=== PATIENT | female | born 1980 | race Caucasian/White ===

== ENCOUNTER 2021-01-03 11:48 | Inpatient (IN) | payer BC ==
[2021-01-03 12:59] VITALS: BMI 22.3
[2021-01-03] MEDS ORDERED: ACETAMINOPHEN 325 MG TABLET (FP) PO PRN ×2 (13:22)
[2021-01-03] MEDS ORDERED: MAG HYDROX/AL HYDROX/SIMETH 30 ML UNIT-DOSE CUP PO PRN (13:22)
[2021-01-03] MEDS ORDERED: MAGNESIUM CITRATE 300 ML BOTTLE PO PRN (13:22)
[2021-01-03] MEDS ORDERED: METHOCARBAMOL 500 MG TABLET PO PRN (13:22)
[2021-01-03] MEDS ORDERED: BISMUTH SUBSALICYLATE 524 MG/30 ML PO PRN (13:22)
[2021-01-03] MEDS ORDERED: MAGNESIUM HYDROX 2400MG/30ML ORAL SUSPENSION 30 ML CUP PO PRN (13:22)
[2021-01-03] MEDS ORDERED: IBUPROFEN 400 MG TABLET (FP) PO PRN (13:22)
[2021-01-03] MEDS ORDERED: MENTHOL/PHENOL 1 EACH UD MM PRN (13:22)
[2021-01-03] MEDS ORDERED: LORazepam 2 MG TABLET PO ONE (13:30)
[2021-01-03 15:09] LABS: HEMATOCRIT 39.4 % (32.4-45.2); HEMOGLOBIN 13.7 GM/dL (10.7-15.3); MCH 31.5 pg (25.7-33.7); MCHC 34.9 g/dl (32.0-36.0); MEAN CELL VOLUME 90.4 fl (80-96); MEAN PLT VOLUME 6.3 fl (7.5-11.1); PLATELET COUNT 146 10^3/uL (134-434); RBC 4.35 M/mm3 (3.60-5.2); RDW 16.4 % (11.6-15.6)
[2021-01-03] MEDS: hydrOXYzine PAMOATE 25 MG CAPSULE (FP) PO SCH ×3 (15:23→22:56)
[2021-01-03] MEDS: NICOTINE 21 MG/24 HOURS TOPICAL PATCH TD SCH (15:23)
[2021-01-03] MEDS: PRENATAL VITAMINS W/ FOLIC ACID TABLET (FP) PO SCH (15:23)
[2021-01-03 15:45] LABS: ALBUMIN 4.4 g/dl (3.4-5.0); BLOOD UREA NITROGEN 8.9 mg/dL (7-18); CALCIUM 9.2 mg/dL (8.5-10.1)
[2021-01-03 15:48] LABS: CREATININE 0.7 mg/dL (0.55-1.3)
[2021-01-03 15:50] LABS: BILIRUBIN,TOTAL 0.4 mg/dL (0.2-1); TOT PROT 7.2 g/dl (6.4-8.2)
[2021-01-03 16:15] LABS: HIV INTERPRETATION NEGATIVE (NEGATIVE)
[2021-01-03] MEDS: LORazepam 2 MG TABLET PO SCH ×2 (17:51→22:56)
[2021-01-03] MEDS: NICOTINE POLACRILEX 2 MG GUM BUC PRN (18:12)
[2021-01-03] MEDS: traZODone HCL 100 MG TABLET (FP) PO SCH (22:55)
[2021-01-03] MEDS: BENZTROPINE MESYLATE 1 MG TABLET PO SCH (22:56)
[2021-01-03] MEDS: MELATONIN 5 MG TABLETS PO SCH (22:56)
[2021-01-03] MEDS: THIAMINE HCL 100 MG TABLET (FP) PO SCH (22:56)
[2021-01-03] MEDS: HALOPERIDOL 5 MG TABLET PO SCH (22:57)
[2021-01-04] MEDS: LORazepam 2 MG TABLET PO SCH ×4 (05:18→22:10)
[2021-01-04] MEDS: hydrOXYzine PAMOATE 25 MG CAPSULE (FP) PO SCH ×5 (05:18→22:10)
[2021-01-04] MEDS: BENZTROPINE MESYLATE 1 MG TABLET PO SCH ×2 (10:23→22:09)
[2021-01-04] MEDS: NICOTINE 21 MG/24 HOURS TOPICAL PATCH TD SCH (10:24)
[2021-01-04] MEDS: PRENATAL VITAMINS W/ FOLIC ACID TABLET (FP) PO SCH (10:24)
[2021-01-04] MEDS: NICOTINE POLACRILEX 2 MG GUM BUC PRN (13:51)
[2021-01-04] MEDS: LORazepam 1 MG TABLET PO PRN (20:14)
[2021-01-04] MEDS: traZODone HCL 100 MG TABLET (FP) PO SCH (22:09)
[2021-01-04] MEDS: HALOPERIDOL 5 MG TABLET PO SCH (22:10)
[2021-01-04] MEDS: MELATONIN 5 MG TABLETS PO SCH (22:10)
[2021-01-04] MEDS: THIAMINE HCL 100 MG TABLET (FP) PO SCH (22:10)
[2021-01-05] MEDS: LORazepam 1 MG TABLET PO SCH ×4 (05:31→22:16)
[2021-01-05] MEDS: hydrOXYzine PAMOATE 25 MG CAPSULE (FP) PO SCH ×5 (05:31→22:16)
[2021-01-05] MEDS: ONDANSETRON *ODT* 4 MG TABLET SL PRN (09:36)
[2021-01-05] MEDS: PRENATAL VITAMINS W/ FOLIC ACID TABLET (FP) PO SCH (10:26)
[2021-01-05] MEDS: BENZTROPINE MESYLATE 1 MG TABLET PO SCH ×2 (10:26→22:16)
[2021-01-05] MEDS: NICOTINE 21 MG/24 HOURS TOPICAL PATCH TD SCH (10:27)
[2021-01-05] MEDS: LORazepam 1 MG TABLET PO PRN (13:05)
[2021-01-05] MEDS: traZODone HCL 100 MG TABLET (FP) PO SCH (22:15)
[2021-01-05] MEDS: MELATONIN 5 MG TABLETS PO SCH (22:16)
[2021-01-05] MEDS: THIAMINE HCL 100 MG TABLET (FP) PO SCH (22:16)
[2021-01-05] MEDS: HALOPERIDOL 5 MG TABLET PO SCH (22:16)
[2021-01-06] MEDS ORDERED: LORazepam 0.5 MG TABLET PO PRN
[2021-01-06] MEDS: LORazepam 0.5 MG TABLET PO SCH ×4 (05:17→22:11)
[2021-01-06] MEDS: hydrOXYzine PAMOATE 25 MG CAPSULE (FP) PO SCH ×5 (05:17→22:14)
[2021-01-06] MEDS: BENZTROPINE MESYLATE 1 MG TABLET PO SCH ×2 (10:14→22:11)
[2021-01-06] MEDS: PRENATAL VITAMINS W/ FOLIC ACID TABLET (FP) PO SCH (10:15)
[2021-01-06] MEDS: NICOTINE 21 MG/24 HOURS TOPICAL PATCH TD SCH (10:15)
[2021-01-06] MEDS: ONDANSETRON *ODT* 4 MG TABLET SL PRN (16:28)
[2021-01-06] MEDS: GABAPENTIN 100 MG CAPSULE PO SCH (17:19)
[2021-01-06] MEDS ORDERED: GABAPENTIN 100 MG CAPSULE PO SCH (22:00)
[2021-01-06] MEDS: MELATONIN 5 MG TABLETS PO SCH (22:10)
[2021-01-06] MEDS: THIAMINE HCL 100 MG TABLET (FP) PO SCH (22:10)
[2021-01-06] MEDS: HALOPERIDOL 5 MG TABLET PO SCH (22:11)
[2021-01-06] MEDS: traZODone HCL 100 MG TABLET (FP) PO SCH (22:11)
[2021-01-07] MEDS ORDERED: LORazepam 0.5 MG TABLET PO ONE (05:00)
[2021-01-07] MEDS: hydrOXYzine PAMOATE 25 MG CAPSULE (FP) PO SCH ×2 (05:58→09:29)
[2021-01-07] MEDS: GABAPENTIN 100 MG CAPSULE PO SCH (06:01)
[2021-01-07] MEDS: PRENATAL VITAMINS W/ FOLIC ACID TABLET (FP) PO SCH (09:29)
[2021-01-07] MEDS: BENZTROPINE MESYLATE 1 MG TABLET PO SCH (09:29)
[2021-01-07] MEDS: NICOTINE 21 MG/24 HOURS TOPICAL PATCH TD SCH (09:30)
[2021-01-07 09:45] VITALS: BP 133/74; PULSE 104; TEMP 98
== END 2021-01-07 09:45 | disposition home or self-care (01) | DRG 775 ==
LOC: YASAS 11:48 → Y6N 14:09
PROVIDERS: ADMIT Allergy & Immunology; ATTEND Allergy & Immunology
PROC: HZ2ZZZZ Detoxification Services for Substance Abuse Treatment (ICD-10-PCS; principal; 2021-01-03)
DX: F10.230 Alcohol dependence with withdrawal, uncomplicated (principal); F12.20 Cannabis dependence, uncomplicated; F17.210 Nicotine dependence, cigarettes, uncomplicated; F33.1 Major depressive disorder, recurrent, moderate; F10.280 Alcohol dependence with alcohol-induced anxiety disorder; F10.24 Alcohol dependence with alcohol-induced mood disorder; F10.282 Alcohol dependence with alcohol-induced sleep disorder; F42.9 Obsessive-compulsive disorder, unspecified; F40.10 Social phobia, unspecified; F41.9 Anxiety disorder, unspecified; D56.9 Thalassemia, unspecified; Z88.8 Allergy status to other drugs, medicaments and biological substances; Z98.84 Bariatric surgery status
CPT/HCPCS: 36415; 80053; 81025; 85027; 86780; 87389; 93005; 93010; C9803; Q0162; U0003; U0005